=== PATIENT | female | born 1985 | race African-American/Black ===

== ENCOUNTER → 2017-04-04 | Outpatient (CLI) | payer OTHER ==
[~2017-04-04] VITALS: Ht 177.8 cm; Wt 117.9 kg
[~2017-04-04] MED LIST: BUTALB-ACETAMI1 EAC2 PO; CYMBALTA60 MG PO; IMITREX100 MG PO; TOPAMAX200 MG PO
--- NOTE | ~2017-04-04 | O ---
[facility] [place] [address] OPERATIVE REPORT Name: LALA ORTIZ Room #: REG [facility]#: [id number] Admission: 04/04/17 Attend Phys: Roney Bailey MD, Discharge: Date of : 85 Report #: [id number] THIS REPORT FOR: //name// CC: Roney Quezadanica Angelique DATE OF SERVICE: 04/04/2017 PREOPERATIVE DIAGNOSES: 1. Dysphagia. 2. Indwelling lap band. 3. Morbid obesity with a body mass index of greater than 40. POSTOPERATIVE DIAGNOSES: 1. Dysphagia. 2. Indwelling lap band. 3. Morbid obesity with a body mass index of greater than 40. 4. Malpositioned and slipping lap band. 5. Small hiatal hernia. PROCEDURE PERFORMED: A thorough diagnostic esophagogastroduodenoscopy (EGD). SURGEON: Roney Bailey MD METROLOGY MANAGER: None. ANESTHESIA: Monitored anesthesia care. ESTIMATED BLOOD LOSS: None. COMPLICATIONS: None. SPECIMENS: None. INDICATIONS: The patient is a 31-year-old morbidly obese female who presented with overt dysphagia and a history of a lap band placement several years ago. In addition to the patient having inadequate weight loss, she has now had significant difficulties with tolerating oral intake and as such, indication was for evaluation today. No erosions were seen during the procedure. PROCEDURE: After explaining the risks, benefits, and alternatives of the procedure with the patient in detail and obtaining consent, the patient was brought to the endoscopy suite, placed supine on her hospital bed. After conducting a thorough timeout procedure, verifying correct patient and procedure, she was positioned in the left lateral decubitus position and was administered monitored anesthesia care. Her SCDs were hooked up to [facility] [address] [place] [address] OPERATIVE REPORT Name: ANGELLALAABBY GIL [facility]: [facility] [id number] Admission: 04/04/17 Attend Phys: Roney Bailey MD, Discharge: Date of : 85 Report #: [id number] compression device. Using the eBrevian upper endoscope, I was able to easily intubate the oropharynx and traverse this down into the esophagus. The distal part of the esophagus was quite tortuous; however, I was able to navigate past the gastroesophageal juncture with slight difficulty to arrive in the gastric lumen. The pylorus was identified and intubated. The scope was advanced to the second portion of duodenum. Slow and careful withdrawal of the EGD scope showed no evidence of duodenitis, gastritis, esophagitis, mass lesions or ulcerations. Retroflexion view of the scope within the gastric lumen did show extrinsic compression of the lap band that appeared to be skewed and significantly more cephalad than desired. There was evidence of a small hiatal hernia as well. Allowing the patient to lighten from anesthesia to where she would flex her abdominal muscles showed significant mobility of the lap band extrinsically showing that it was slipping in addition to being malpositioned. The scope was straightened out, the stomach was desufflated and it was withdrawn into the distal esophagus where I saw evidence of a patulous lower esophageal sphincter complex. I saw no evidence of Overton changes within the distal esophagus nor did I see any esophagitis. Attempts at intubating the gastric lumen once again showed slight difficulty due to the tortuosity and extrinsic compression from the lap band; however, I was able to eventually navigate through into the gastric lumen where I proceeded to fully desufflate the stomach once again. The scope was then slowly withdrawn and passed off the field completing the procedure. At the end of the procedure, all instrument, needle, and sponge counts were correct. The patient tolerated the procedure without incident, was awakened in the endoscopy suite and transitioned to the recovery room in stable condition with no apparent complications. <ELECTRONICALLY SIGNED> By: Roney Bailey MD, FACS 04/04/17 [id number] Roney Bailey MD, FACS /nt
== END | disposition home or self-care (01) ==
LOC: GI 06:33 → EDSTATUS 09:53 → GI 10:31
DX: E66.01 Morbid (severe) obesity due to excess calories (principal); K95.09 Other complications of gastric band procedure; R13.10 Dysphagia, unspecified; K44.9 Diaphragmatic hernia without obstruction or gangrene; Z68.41 Body mass index [BMI] 40.0-44.9, adult; G43.909 Migraine, unspecified, not intractable, without status migrainosus; F17.210 Nicotine dependence, cigarettes, uncomplicated; K21.9 Gastro-esophageal reflux disease without esophagitis; Z98.890 Other specified postprocedural states
CPT/HCPCS: 62110; 62900